=== PATIENT | male | born 1970 | race Caucasian/White ===

== ENCOUNTER 2017-05-15 12:03 | Emergency (ER) | payer OTHER ==
--- NOTE | 2017-05-15 16:23 | ERNOTE ---
Psychological HPI - Date Date of Service: 05/15/17 - General Chief Complaint: Anxiety Source: Reports: patient Exam Limitations: Reports: no limitations - Immun/Allergies/Home Medications Allergies/Adverse Reactions: Allergies No Known Allergies Allergy (Unverified 03/19/16 14:06) Home Medications: HOME MEDICATIONS Amino Acids/Protein Hydrolys [Liquacel 100 Liquid Packet] 30 ml PO DAILY [Last Taken Unknown] Ascorbic Acid [Vitamin C] 500 mg PO DAILY 12/03/16 [Last Taken Unknown] Aspirin/Calcium Carbonate/Mag [Aspirin Buffered 325 mg Tab] 325 mg PO DAILY [Last Taken Unknown] FLUoxetine HCL [Fluoxetine HCl] 20 mg PO DAILY 12/03/16 [Last Taken Unknown] Furosemide 100 mg PO QAM 12/03/16 [Last Taken Unknown] Furosemide [Lasix] 40 mg PO DAILY 12/03/16 [Last Taken Unknown] Lisinopril [Zestril] 40 mg PO DAILY 12/03/16 [Last Taken Unknown] Loratadine 10 mg PO DAILY 12/03/16 [Last Taken Unknown] Metoprolol Tartrate [Lopressor] 25 mg PO BID 12/03/16 [Last Taken Unknown] Metoprolol Tartrate [Lopressor] 50 mg PO BID 12/03/16 [Last Taken Unknown] Multivitamin,Stress Formula [Stress Formula] 1 each PO DAILY 12/03/16 [Last Taken Unknown] Potassium Chloride [K-Tab ER] 20 meq PO BID 12/03/16 [Last Taken Unknown] Tamsulosin HCl [Flomax] 0.4 mg PO HS 12/03/16 [Last Taken Unknown] Venlafaxine HCl [Venlafaxine HCl ER] 75 mg PO DAILY 12/03/16 [Last Taken Unknown ] Venlafaxine HCl [Venlafaxine HCl ER] 150 mg PO DAILY 12/03/16 [Last Taken Unknown] Cefdinir 300 mg PO BID #20 capsule 03/27/17 [Last Taken Unknown] Fluconazole [Diflucan] 150 mg PO DAILY #3 tablet 03/27/17 [Last Taken Unknown] - History of Present Illness Narrative: [facility] making an apparent suicidal threat. This happened 2 days ago and he by report made a statement about hanging himself. Patient tells me he has been anxious but has not made any statement like this and relates that what he said was taken out of context and he never actually said anything like that and has no thoughts of harming himself or others. He denies any acute physical complaints. No fever. No CP or SOB. has not seen anyone else for this. Time Seen by Provider: 05/15/17 12:23 Arrived by: Reports: private car Intent: Denies: suicide, prior thoughts of suicide Situational Problems: Reports: other - living circumstance Associated Symptoms: Reports: frustrated, other - anxious. Denies: suicidal thoughts Prior Treament: Denies: recently seen Review of Systems - Review of Systems Constitutional: Absent: fever Respiratory: Absent: shortness of breath Cardiology: Absent: chest pain Gastrointestinal/Abdominal: Absent: abdominal pain Neurological: Present: other - no acute focal weakness - Patient's Past Medical History Patient History - Medical: Arthritis, Diabetes Type 2, Depression, Kidney stone , Obesity, Osteoarthritis, UTI'S, Other Patient History - Cardiac/Respiratory: Hypertension, Peripheral Vascular Disease , Other Patient History - Cancer: No Hx of Cancer Patient History - Surgical Procedures: Other Patient History - Other: None - Family History Mother Family History - Medical: , Diabetes Type 2 Family History - Cardiac/Respiratory: No pertinent hx Father Family History - Medical: Family History - Cardiac/Respiratory: No pertinent hx - Social History Living Situations: home Abuse History: No History of abuse Psych History: Hx of Anxiety, Hx of Depression Alcohol Use: none Drug Use: none - Immunizations Immunizations Up to Date: Yes Hx Pneumococcal Vaccination: No History of Influenza Vaccine: Yes Psychological Exam - Exam General Appearance: Present: alert, no apparent distress Head Exam: Present: normal inspection Neurological: Present: calm, boat buffer plastic II-XII nml as tested. Absent: agitated Thoughts/Hallucinations: Present: no apparent hallucination. Absent: paranoid Behavior/Eye Contact/Speech: Present: cooperative, good eye contact Eye Exam: Normal inspection: bilateral, PERRL: bilateral Ears, Nose, Throat: Present: normal ENT inspection Neck: Present: normal inspection Respiratory: Present: no respiratory distress, normal breath sounds, lungs clear Cardiovascular/Chest: Present: regular rate, rhythm Gastrointestinal/Abdominal: Present: normal bowel sounds, nontender, soft Extremity Exam: Present: other - legs wrapped, no deformity Skin Exam: Present: normal color, warm/dry ED Progress - Vital Signs Patient's Vital Signs:: I have reviewed the patient's vital signs. Vital Signs: Vital Signs 05/15/17 05/15/17 05/15/17 10:33 12:18 12:32 Temperature 36.5 C 36.9 C Pulse Rate 72 72 Respiratory 18 Rate Blood Pressure 150/100 184/117 O2 Sat by Pulse 96 Oximetry - Progress/Reassessment Chief Complaint: Anxiety Progress Note-Subjective: 05/15/17 18:31 Patient not suicidal or homicidal. Seen in ED by Dr Glass, he feels patient can be dishcarged, please see his note for full details. Stable for d/c. Departure Clinical Impression: Psychiatric complaint - Departure Disposition: Home self-care Condition: Stable Additional Instructions: Follow-up as directed. Continue current medications. Return if your condition worsens or changes in any way. Referrals: Jose Miguel Katz MD [Primary Care Provider] -
[2017-05-15 18:39] VITALS: BP 180/94
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
== END 2017-05-15 19:24 | disposition home or self-care (01) ==
LOC: ER 12:03
DX: Z00.8 Encounter for other general examination (principal)